=== PATIENT | male | born 1955 | race Caucasian/White ===

== ENCOUNTER 2018-08-16 08:21 | Emergency (ER) | payer OTHER ==
[2018-08-16] MEDS: DIPHENHYDRAMINE 50 MG INJ IM (09:11)
[2018-08-16] MEDS: predniSONE 20 MG TAB PO (09:11)
[2018-08-16] MEDS: FAMOTIDINE 20 MG TAB PO (09:11)
== END 2018-08-16 10:02 | disposition home or self-care (01) ==
LOC: FTE 08:21
DX: L50.0 Allergic urticaria (principal); I10 Essential (primary) hypertension; Z98.61 Coronary angioplasty status
CPT/HCPCS: 96372; 99284-25; J1200